=== PATIENT | female | born 1950 | race Caucasian/White ===

== ENCOUNTER 2020-08-30 14:31 | Inpatient (IN) | payer MEDICARE, OTHER ==
[~2020-08-30] VITALS: Ht 162.6 cm; Wt 64.9 kg
[~2020-08-30 14:31] MED LIST: ALBU18HF2 IH; ASPI-1169 PO; AZIT250T13 PO; ERGO500014 PO; FLUT1DIS3 INH; GENT5DRO23 EACHEYE; NEFA150T PO; PROP40TA7 PO
--- NOTE | 2020-08-30 14:35 | NUR ---
DR. ATKINSON AT BS FOR KRYSTLEAL
[2020-08-30] MEDS ORDERED: IV NS 0.9% 1,000 ML BAG IV ONE (15:00)
--- NOTE | 2020-08-30 15:10 | NUR ---
COVID SPECIMEN OBTAINED AND SENT TO LAB.
--- NOTE | 2020-08-30 15:12 | NUR ---
[id number], diaphoretic, altered, "possible heat stroke per ems, 88/40 BS 256, 500 NS infused on scene. PT AAOX4, VSS. RR EVEN & UNLABORED. JOON CP, SOB, DIZZINESS, N/V AT THIS TIME. PLACED ON FOREST OFFICER, SR. WILL CONT TO MONITOR.
[2020-08-30 15:33] LABS: HEMOGLOBIN 14.3 g/dL (11.5-14.8); RED BLOOD CELL COUNT(AUTO) 4.78 MIL/uL (4.0-5.2)
[2020-08-30 15:38] LABS: SERUM AMMONIA 24 umol/L (11-32)
[2020-08-30 15:40] LABS: BASOPHILS # (AUTO) 0.1 /CMM (0.0-0.2); BASOPHILS % (AUTO) 0.7 % (0.0-2.0); EOSINOPHILS % (AUTO) 0.2 % (0.0-6.0); HEMATOCRIT 44 % (33-45); LYMPHOCYTES # (AUTO) 1.4 /CMM (0.8-4.8); LYMPHOCYTES % (AUTO) 9.4 % (20.0-44.0); MEAN CORPUSCULAR HGB CONC 33 g/dl (31.0-36.0); MEAN CORPUSCULAR VOLUME 92 fL (82-100); MONOCYTES # (AUTO) 0.5 /CMM (0.1-1.30); MONOCYTES % (AUTO) 3.6 % (2.0-12.0); NEUTROPHILS # (AUTO) 12.4 /CMM (1.8-8.9); NEUTROPHILS % (AUTO) 86.1 % (43.0-81.0); PLATELET COUNT (AUTO) 317 /CMM (150-450); WHITE BLOOD COUNT (AUTO) 14.4 K/uL (4.3-11.0)
[2020-08-30 15:45] LABS: APPEARANCE,URINE TURBID (CLEAR); BILIRUBIN,URINE MODERATE (NEGATIVE); BLOOD, URINE LARGE Ery/uL (NEGATIVE); COLOR,URINE YELLOW (YELLOW); KETONES,URINE NEGATIVE (NEGATIVE); LEUKOCYTE ESTERASE ,URINE TRACE (NEGATIVE); NITRITE, URINE POSITIVE (NEGATIVE); PROTEIN,URINE 100 mg/dl (NEGATIVE); UGLUCOSE NEGATIVE (NEGATIVE)
[2020-08-30 15:46] LABS: ALANINE AMINOTRANSFERASE 9 U/L (12-78); ALBUMIN 3.1 g/dL (3.4-5.0); ALCOHOL, BLOOD < 3 mg/dL (0-0); ALKALINE PHOSPHATASE 120 U/L (46-116); ASPARTATE AMINOTRANSFERASE 16 U/L (15-37); BILIRUBIN,DIRECT 0.2 mg/dL (0.0-0.2); BILIRUBIN,TOTAL 0.5 mg/dL (0.2-1.0); CALCIUM, SERUM 9.6 mg/dL (8.5-10.1); CARBON DIOXIDE 23 mmol/L (21-32); CHLORIDE 101 mmol/L (98-107); CREATININE 1.7 mg/dL (0.6-1.3); GLUCOSE 269 mg/dL (74-106); SALICYLATE 8.6 mg/dL (2.8-20.0); SODIUM SERUM 144 mmol/L (136-145); TOTAL PROTEIN, SERUM 7.3 g/dL (6.4-8.2); UREA NITROGEN, BLOOD 12 mg/dL (7-18)
[2020-08-30 15:50] LABS: POTASSIUM 2.1 mmol/L (3.5-5.1); THYROID STIMULATING HORMONE 3.026 uIU/mL (0.358-3.74)
--- NOTE | 2020-08-30 15:52 | NUR ---
PATIENT REFUSED CT HEAD WO EXAM. ORDERING DOCTOR AND NURSE NOTIFIED.
[2020-08-30 15:58] LABS: BACTERIA,URINE 4+ /HPF (None Seen); RBC,URINE 21-50 /HPF (0-2)
[2020-08-30] MEDS ORDERED: POTASSIUM CHLORIDE 20 MEQ TAB.PRT.SR PO ONE ×2 (16:00→16:04)
--- NOTE | 2020-08-30 16:02 | NUR ---
LAB CALLED PT COVID-19 NEG. (-)
[2020-08-30] MEDS ORDERED: CLON2TAB11 PO (16:20)
--- NOTE | 2020-08-30 16:31 | NUR ---
PT SIGNED AMA. Written and verbal after care instructions given. Patient verbalizes understanding of instruction. IV removed. Catheter intact and site benign. Pressure and 4x4 applied to site. No bleeding noted.
--- NOTE | 2020-08-30 16:55 | NUR ---
MOVE SHEET SUBMITTED AND CALLED FOR TELE BED.
--- NOTE | 2020-08-30 16:59 | NUR ---
PT UNABLE TO AMBULATE, DR. ATKINSON AWARE & PT WILL BE ADMITTED TO HOSPITAL.
--- NOTE | 2020-08-30 18:24 | NUR ---
GOT BED 202
[2020-08-30] MEDS ORDERED: CEFTRIAXONE 1GM BAG (ER ONLY) 50 ML IV ONE (18:25)
[2020-08-30] MEDS ORDERED: CEFTRIAXONE 1GM BAG (ER ONLY) 1 GM/50 ML PIGGYBACK IV ONE (18:30)
--- NOTE | 2020-08-30 18:32 | NUR ---
report given to peter arauz patient awaiting transfer to floor.
--- NOTE | 2020-08-30 19:03 | NUR ---
UNABLE TO ACCOMPLISHED ADMISSION ASSESSMENT. BECAUSE PT WAS PREVIOUSLY DEPARTED DISCHARGED. PT IS AAOX3, V/S STABLE, KEPT RESTED AND COMFORTABLE.
[2020-08-30] MEDS ORDERED: ACETAMINOPHEN 325 MG TABLET PO PRN (19:30)
[2020-08-30] MEDS ORDERED: CEFTRIAXONE 1 G in IV D5W 50 ML IV SCH (19:30)
[2020-08-30] MEDS ORDERED: MAGNESIUM HYDROXIDE 30 ML UDC PO PRN (19:30)
[2020-08-30] MEDS ORDERED: ONDANSETRON HCL/PF 4 MG/2 ML VIAL IVP PRN (19:30)
[2020-08-30] MEDS ORDERED: ALBUTEROL HALF STRENGTH 1.25 MG/3 ML VIAL.NEB NEB PRN (19:30)
[2020-08-30] MEDS ORDERED: IPRATROPIUM NEB FS 0.5 MG/2.5 ML AMPUL.NEB NEB PRN (19:30)
[2020-08-30] MEDS ORDERED: clonazePAM 2 MG TABLET PO SCH (19:30)
[2020-08-30] MEDS ORDERED: Z GUARD REMEDY 2 OZ OINT TP PRN (19:30)
--- NOTE | 2020-08-30 19:35 | NUR ---
OCCUPATIONAL THERAPIST'S ASSISTANT NOTES PATIENT IN ARRIVED ON FLOOR AT 1905. PT IS IN BED, AWAKE, ALERT AND ORIENTED X 2-3. BREATHING EVEN AND UNLABORED ON ROOM AIR. SHOWS NO SIGNS OF ACUTE RESPIRATORY DISTRESS, NO ACUTE PAIN. TELE MONITOR SR WITH PVC. IV ON R HAND 18 ITS CLEAN DRY AND INTACT. SHOWS NO SIGNS OF INFILTRATION, NO REDNESS. BELONGINGS CHECKLIST COMPLETED, SKIN ASSESSMENT COMPLETED. ORIENTED TO STAFF AND ROOM. BED ALARM ON. SAFETY PRECAUTIONS IN PLACE. BED IN LOWEST POSITION, LOCKED, AND CALL LIGHT KEPT WITHIN REACH. WILL CONTINUE TO MONITOR.
[2020-08-30 20:00] VITALS: BP 173/66
[2020-08-30 20:16] VITALS: BP 173/66
[2020-08-30] MEDS: HYDROCODONE/APAP 5/325MG TABLET PO PRN (20:17)
--- NOTE | 2020-08-30 20:17 | NUR ---
VETERINARY PATHOLOGIST NOTES PATIENT SCREAMING FOR PAIN MEDICATION, STATING BURNING ON LEGS 06/06. GIVEN PRN NORCO AT 2017. VITAL SIGN WNL.
[2020-08-30] MEDS: IV NS 0.9% 1,000 ML IV PRN (20:27)
[2020-08-30] MEDS: NICOTINE PATCH (14MG) 14 MG PATCH.TD24 TD SCH (20:36)
[2020-08-30] MEDS ORDERED: POTASSIUM CL. PREMIX PERIPHER. 100 ML ONE (20:59)
[2020-08-30] MEDS ORDERED: HEPARIN SODIUM, PORCINE 5000 UNITS/1 ML VIAL SQ SCH (21:00)
[2020-08-30] MEDS: HEPARIN SODIUM, PORCINE 5000 UNITS/1 ML VIAL SQ SCH (21:19)
[2020-08-30] MEDS: POTASSIUM CL. PREMIX PERIPHER. 50 ML IV SCH ×2 (21:20→22:31)
[2020-08-30] MEDS ORDERED: IV NS 0.9% 500 ML IV ONE (21:30)
[2020-08-30] MEDS ORDERED: VANCOMYCIN 1 GM in IV D5W 250ml IV ONE (21:30)
[2020-08-30] MEDS ORDERED: VANCOMYCIN 1 GM VIAL ONE (21:42)
[2020-08-30] MEDS ORDERED: clonazePAM 1 MG TABLET ONE (21:45)
[2020-08-31] VITALS (10 sets, daily range): BP systolic 101–166; BP diastolic 65–98
--- NOTE | 2020-08-31 00:43 | NUR ---
E COMMERCE STRATEGIST NOTES PATIENT REFUSING DTV PUMP. PT STATES THAT HER LEGS ARE IN PAIN. WILL ATTEMPT LATER.
[2020-08-31] MEDS: HYDROCODONE/APAP 5/325MG TABLET PO PRN ×3 (01:08→17:38)
--- NOTE | 2020-08-31 06:31 | NUR ---
ANIMAL HEALTH TECHNICIAN NOTES PT IS IN BED, ASLEEP, ALERT AND ORIENTED X 2-3. BREATHING EVEN AND UNLABORED ON ROOM AIR. SHOWS NO SIGNS OF ACUTE RESPIRATORY DISTRESS, NO ACUTE PAIN. TELE MONITOR SR WITH PVC. IV ON R HAND 20 ITS CLEAN DRY AND INTACT. RUNNING NS AT 100ML/HR SHOWS NO SIGNS OF INFILTRATION, NO REDNESS. ALL NEEDS ATTENDED TO. ALL DUE MEDICATIONS GIVEN. SAFETY PRECAUTIONS IN PLACE. BED ALARM ON, LOCKED, LOWEST POSITION, AND CALL LIGHT KEPT WITHIN REACH. WILL CONTINUE TO MONITOR.
[2020-08-31 06:53] LABS: BASOPHILS % (AUTO) 0.4 % (0.0-2.0); EOSINOPHILS % (AUTO) 0.4 % (0.0-6.0); HEMATOCRIT 38 % (33-45); HEMOGLOBIN 12.5 g/dL (11.5-14.8); LYMPHOCYTES # (AUTO) 2.2 /CMM (0.8-4.8); LYMPHOCYTES % (AUTO) 22.7 % (20.0-44.0); MEAN CORPUSCULAR HGB CONC 33 g/dl (31.0-36.0); MEAN CORPUSCULAR VOLUME 92 fL (82-100); MONOCYTES # (AUTO) 0.8 /CMM (0.1-1.30); NEUTROPHILS # (AUTO) 6.7 /CMM (1.8-8.9); NEUTROPHILS % (AUTO) 68.5 % (43.0-81.0); PLATELET COUNT (AUTO) 228 /CMM (150-450); RED BLOOD CELL COUNT(AUTO) 4.11 MIL/uL (4.0-5.2); WHITE BLOOD COUNT (AUTO) 9.7 K/uL (4.3-11.0)
[2020-08-31 07:11] LABS: CALCIUM, SERUM 8.3 mg/dL (8.5-10.1); CREATININE 0.8 mg/dL (0.6-1.3); MAGNESIUM 2.1 mg/dL (1.8-2.4); PHOSPHORUS 1.8 mg/dL (2.5-4.9)
--- NOTE | 2020-08-31 07:30 | NUR ---
RN NOTE THE PATIENT IS RECEIVED IN BED. THE PATIENT IS ALERT AND ORIENTED X3 WITH EPISODES OF FORGETFULNESS. THE PATIENT ABLE TO MAKE NEEDS KNOWN VERBALLY. DENIES PAIN. THE PATIENT IS IN ROOM AIR AND DENIES SOB. RESPIRATION REGULAR AND UNLABORED. DENIES SOB. RIGHT HAND G 20 PATENT AND NS INFUSING AT 100ML/HR. NO S/S INFILTRATION NOTED. BED LOW AND LOCKED. SIDE RAILS UP X3. CALL LIGHT WITHIN REACH. WILL CONTINUE TO MONITOR.
[2020-08-31 07:34] LABS: POTASSIUM 1.9 mmol/L (3.5-5.1)
--- NOTE | 2020-08-31 08:07 | NUR ---
[place] NOTE WAITING FOR BAG BAILER KATHY`S RESPOND TO REPORT POTASSIUM LEVEL OF 1.9 AND PHOSPHORUS LEVEL OF 1.8. Addendum: 08/31/20 at 0859 by WALI DELCID RN [place] NOTE ORDER OS POTASSIUM OF PHOSPHATE IS OBTAINED, NOTED AND CARRIED OUT.
[2020-08-31] MEDS: NICOTINE PATCH (14MG) 14 MG PATCH.TD24 TD SCH (08:13)
[2020-08-31] MEDS: clonazePAM 1 MG TABLET PO SCH ×2 (08:13→16:50)
[2020-08-31] MEDS: HEPARIN SODIUM, PORCINE 5000 UNITS/1 ML VIAL SQ SCH ×2 (08:14→21:52)
--- NOTE | 2020-08-31 08:14 | NUR ---
RN NOTE THE PATIENT COMPLAINS OF GENERALIZED BODY PAIN 05/07. NORCO 5/325 1 TAB PO GIVEN. WILL CONTINUE TO MONITOR.
--- NOTE | 2020-08-31 09:13 | NUR ---
RN NOTE THE PATIENT VERBALIZED NORCO 5/325 BEING EFFECTIVE AND RATED HER PAIN 0/10.
[2020-08-31] MEDS: POTASSIUM CHLORIDE 20 MEQ TAB.PRT.SR PO SCH ×5 (09:34→14:20)
[2020-08-31] MEDS: POTASSIUM PHOSPHATE MM 7.5 MMOL in IV NS 0.9% 100 ML IV SCH ×2 (10:13→13:19)
[2020-08-31] MEDS: IV NS 0.9% 1,000 ML IV PRN (10:29)
[2020-08-31 15:02] LABS: CALCIUM, SERUM 8.3 mg/dL (8.5-10.1); CREATININE 0.9 mg/dL (0.6-1.3)
[2020-08-31 15:06] LABS: POTASSIUM 2.4 mmol/L (3.5-5.1)
--- NOTE | 2020-08-31 15:19 | NUR ---
RN NOTE SOLAR WATER HEATER INSTALLER KATHY IS MADE AWARE OF POTASSIUM LEVEL OF 2.4. PER SOLAR WATER HEATER INSTALLER SHE WILL PLACE AN ORDER.
[2020-08-31] MEDS ORDERED: risperiDONE 1 MG TABLET PO PRN (15:30)
[2020-08-31] MEDS: POTASSIUM CL. PREMIX PERIPHER. 50 ML IV SCH ×4 (15:41→21:35)
--- NOTE | 2020-08-31 17:20 | NUR ---
RN NOTE THE PATIENT`S BLOOD PRESSURE IS 166/98 AND PULSE IS 72. ELISABETH CHAVEZ IS MADE AWARE AND RECEIVED AN ORDER OF APRESOLINE 10 MG IV PUSH X1, HOWEVER. THE MEDICATION IN IV FORM IS NOT AVAILABLE PER PHARMACY. WILL INFORM MD TO CHANGE THE ROUTE IF POSSIBLE.
--- NOTE | 2020-08-31 17:27 | NUR ---
RN NOTE THE PATIENT`S BLOOD PRESSURE IS 166/98 AND PULSE IS 72. ELISABETH CHAVEZ IS MADE AWARE AND RECEIVED AN ORDER OF APRESOLINE 10 MG PO X1. NOTED AND CARRIED OUT. WILL ADMINISTER THE MEDICATION AND MONITOR FOR EFFECTIVENESS.
[2020-08-31] MEDS ORDERED: hydrALAZINE HCL IV 20 MG VIAL IV PRN (17:30)
[2020-08-31] MEDS ORDERED: hydrALAZINE HCL 10 MG TABLET PO ONE (17:30)
[2020-08-31] MEDS: CEFTRIAXONE 1 G in IV D5W 50 ML IV SCH (18:36)
--- NOTE | 2020-08-31 19:00 | NUR ---
RN NOTE THE PATIENT IS ALERT AND ORIENTED X3. DENIES PAIN. RECEIVING OXYGEN AT 2L/MIN VIA NASAL CANNULA AND SATURATION IS AT 95%. DENIES SOB. RESPIRATION REGULAR AND UNLABORED. THE PATIENT IN NO APPARENT DISTRESS. EXTERNAL TELE BOX READING IS SR 85. RIGHT HAND G 20 PATENT AND NS INFUSING AT 100ML/HR AND NO S/S INFILTRATION NOTED. BED LOW AND LOCKED. SIDE RAILS UP X3. CALL LIGHT WITHIN REACH. WILL ENDORSE PIT CRANE OPERATOR. Addendum: 08/31/20 at 2005 by WALI DELCID RN RN NOTE ENDORSED 3 BAGS OF POTASSIUM TO THE PIT CRANE OPERATOR RN TO ADMINISTER.
--- NOTE | 2020-08-31 19:35 | NUR ---
FIRER LOW PRESSURE NOTES PT IS IN BED, AWAKE, ALERT AND ORIENTED X 2-3. BREATHING EVEN AND UNLABORED ON ROOM AIR. SHOWS NO SIGNS OF ACUTE RESPIRATORY DISTRESS, NO ACUTE PAIN. TELE MONITOR SR WITH PVC. IV ON R HAND 20 ITS CLEAN DRY AND INTACT. RUNNING NS AT 100ML/HR. SHOWS NO SIGNS OF INFILTRATION, NO REDNESS. SAFETY PRECAUTIONS IN PLACE. BED IN LOWEST POSITION, LOCKED, AND CALL LIGHT KEPT WITHIN REACH. WILL CONTINUE TO MONITOR.
[2020-08-31] MEDS: ATORVASTATIN 10 MG TABLET PO SCH (21:51)
[2020-08-31] MEDS: VANCOMYCIN 1 GM in IV D5W 250 ML IV SCH (22:32)
[2020-09-01] VITALS (10 sets, daily range): BP systolic 135–167; BP diastolic 65–101
[2020-09-01] MEDS: POTASSIUM CL. PREMIX PERIPHER. 50 ML IV SCH ×2 (00:43→01:59)
[2020-09-01] MEDS: CLONIDINE HCL 0.1 MG TABLET PO PRN ×2 (05:27→21:25)
--- NOTE | 2020-09-01 05:30 | NUR ---
CULINARY INSTRUCTOR NOTES PT BP 169/74. RECEIVED ORDER FOR CLONIDINE .1MG PRN >160 Q8HR. GIVEN AT 0527. WILL CONTINUE TO MONITOR.
--- NOTE | 2020-09-01 06:30 | NUR ---
MEMBERSHIP COUNSELOR NOTES PT IS IN BED, ASLEEP, ALERT AND ORIENTED X 2-3. BREATHING EVEN AND UNLABORED ON ROOM AIR. SHOWS NO SIGNS OF ACUTE RESPIRATORY DISTRESS, NO ACUTE PAIN. TELE MONITOR SR WITH PVC AND TRIGEMINY. BP 1HR AFTER PRN CLONIDINE 135/65. IV ON R HAND 20 ITS CLEAN DRY AND INTACT. RUNNING NS AT 100ML/HR. SHOWS NO SIGNS OF INFILTRATION, NO REDNESS.ALL NEEDS ATTENDED TO. ALL DUE MEDICATIONS GIVEN. SAFETY PRECAUTIONS IN PLACE. BED ALARM ON, LOCKED, LOWEST POSITION, AND CALL LIGHT KEPT WITHIN REACH. WILL ENDORSE TO ONCOMING NURSE.
[2020-09-01] MEDS ORDERED: ALBUTEROL SULFATE INH 18 GM HFA.AER.AD IH PRN (07:00)
[2020-09-01] MEDS ORDERED: IPRATROPIUM BROMIDE 14 GM INHALER (or 12.9 GM) IH PRN (07:00)
--- NOTE | 2020-09-01 08:00 | NUR ---
Patient noted with infiltrated IV line . IV removed , arm elevated on pillow. No pain reported
[2020-09-01] MEDS: NICOTINE PATCH (14MG) 14 MG PATCH.TD24 TD SCH (08:05)
[2020-09-01] MEDS: clonazePAM 1 MG TABLET PO SCH ×2 (08:05→17:07)
[2020-09-01] MEDS: HEPARIN SODIUM, PORCINE 5000 UNITS/1 ML VIAL SQ SCH ×3 (08:06→21:23)
[2020-09-01 08:17] LABS: BASOPHILS % (AUTO) 0.6 % (0.0-2.0); EOSINOPHILS % (AUTO) 0.7 % (0.0-6.0); HEMATOCRIT 38 % (33-45); HEMOGLOBIN 12.7 g/dL (11.5-14.8); LYMPHOCYTES % (AUTO) 25.5 % (20.0-44.0); MEAN CORPUSCULAR HGB CONC 33 g/dl (31.0-36.0); MEAN CORPUSCULAR VOLUME 91 fL (82-100); MONOCYTES # (AUTO) 0.4 /CMM (0.1-1.30); MONOCYTES % (AUTO) 5.6 % (2.0-12.0); NEUTROPHILS # (AUTO) 5.4 /CMM (1.8-8.9); NEUTROPHILS % (AUTO) 67.6 % (43.0-81.0); PLATELET COUNT (AUTO) 219 /CMM (150-450); RED BLOOD CELL COUNT(AUTO) 4.22 MIL/uL (4.0-5.2)
[2020-09-01 08:32] LABS: CALCIUM, SERUM 8.4 mg/dL (8.5-10.1); CREATININE 0.7 mg/dL (0.6-1.3); MAGNESIUM 1.9 mg/dL (1.8-2.4); PHOSPHORUS 3.1 mg/dL (2.5-4.9)
[2020-09-01 09:42] LABS: POTASSIUM 2.4 mmol/L (3.5-5.1)
--- NOTE | 2020-09-01 10:10 | NUR ---
Several attempts to insert a new IV line . Patient hard stick. Per Kin holbrook to order a midline
[2020-09-01] MEDS: POTASSIUM CHLORIDE 20 MEQ TAB.PRT.SR PO SCH ×6 (11:28→16:17)
[2020-09-01] MEDS ORDERED: POTASSIUM CHLORIDE 20 MEQ TAB.PRT.SR PO ONE (11:30)
--- NOTE | 2020-09-01 13:05 | NUR ---
Midline to the ALE inserted and flushing well.
[2020-09-01] MEDS ORDERED: IPRATROPIUM NEB FS 0.5 MG/2.5 ML AMPUL.NEB NEB PRN (15:00)
[2020-09-01] MEDS ORDERED: ALBUTEROL FS 2.5 MG/0.5 ML VIAL.NEB NEB PRN (15:00)
[2020-09-01] MEDS: IV NS 0.9% 1,000 ML IV PRN (15:27)
--- NOTE | 2020-09-01 16:10 | NUR ---
Bedside report given to Anup CARRILLO , pt transferred to 3rd floor . Negative for COVID.
--- NOTE | 2020-09-01 16:35 | NUR ---
tele acid purification equipment operator: notes received pt from tele 2 via bed. pt awake, a/ox3. p.t. tx in progress. noted xavi arms with discoloration, left index finger and left elbow with intact blister with discolorations. photos taken. oriented to room and surroundings. instructed to call for assistance.
[2020-09-01 16:40] LABS: CALCIUM, SERUM 8.4 mg/dL (8.5-10.1); CARBON DIOXIDE 31 mmol/L (21-32); CHLORIDE 103 mmol/L (98-107); CREATININE 0.7 mg/dL (0.6-1.3); GLUCOSE 111 mg/dL (74-106); SODIUM SERUM 141 mmol/L (136-145); UREA NITROGEN, BLOOD 5 mg/dL (7-18)
--- NOTE | 2020-09-01 17:30 | NUR ---
m/s sql manager: notes having dinner at this time, hob elevated to 90 degree. instructed to call for assistance.
[2020-09-01] MEDS: CEFTRIAXONE 1 G in IV D5W 50 ML IV SCH (17:51)
--- NOTE | 2020-09-01 19:00 | NUR ---
MICROARRAY OPERATIONS VICE PRESIDENT OPENING NOTES RECEIVED PATIENT IN BED SLEEPING EASILY AROUSABLE RESPIRATIONS EVEN AND UNLABORED WITH EQUAL RISE AND FALL OF CHEST, DENIES ANY PAIN OR DISCOMFORT AT THIS TIME, LEFT UPPER ARM MIDLINE INTACT AND PATENT, NO REDNESS, NO INFILTRATION PRESENT, IVF RUNNING ORDERED, SAFETY PRECAUTIONS RENDERED LOW BED AND LOCKED, ALL NEEDS ATTENDED AT THIS TIME, ORIENTED TO STAFF AND CALL LIGHT AND KEPT WITHIN REACH, WILL CONTINUE TO MONITOR AND ATTEND TO NEEDS REMAINS COMFORTABLE. ON TEL MONITOR SR 72.
--- NOTE | 2020-09-01 19:00 | NUR ---
m/s catechist: notes report given to el (regla) for continuity of care.
[2020-09-01] MEDS: VANCOMYCIN 1 GM in IV D5W 250 ML IV SCH (21:23)
[2020-09-01] MEDS: ATORVASTATIN 10 MG TABLET PO SCH (21:23)
--- NOTE | 2020-09-01 21:25 | NUR ---
RN MS NOTES ASSESSED BP NOTED 175/93 PRN CATAPRES GIVEN ORDERED WILL MONITOR BP FOR EFFECTIVENESS.
--- NOTE | 2020-09-01 21:45 | NUR ---
graduate internship notes despite education provided regarding heparin , patient changed her mind and states " i dont want to take it". heparin not given.
[2020-09-02] VITALS: BP 143/94
[2020-09-02] MEDS: IV NS 0.9% 1,000 ML IV PRN (03:27)
[2020-09-02 04:00] VITALS: BP 147/87
[2020-09-02 04:20] VITALS: BP 147/87
--- NOTE | 2020-09-02 06:16 | NUR ---
ORE BRIDGE OPERATOR CLOSING NOTES PATIENT IN BED SLEEPING EASILY AROUSABLE RESPIRATIONS EVEN AND UNLABORED WITH EQUAL RISE AND FALL OF CHEST, DENIES ANY PAIN OR DISCOMFORT AT THIS TIME, LEFT UPPER ARM MIDLINE INTACT AND PATENT, NO REDNESS, NO INFILTRATION PRESENT, IVF RUNNING ORDERED, SAFETY PRECAUTIONS RENDERED LOW BED AND LOCKED, ALL NEEDS ATTENDED AT THIS TIME, CALL LIGHT KEPT WITHIN REACH, WILL CONTINUE TO MONITOR AND ATTEND TO NEEDS REMAINS COMFORTABLE. ON TELE MONITOR SR 69.
[2020-09-02 06:47] LABS: BASOPHILS % (AUTO) 0.6 % (0.0-2.0); EOSINOPHILS % (AUTO) 2.1 % (0.0-6.0); HEMATOCRIT 39 % (33-45); HEMOGLOBIN 12.9 g/dL (11.5-14.8); LYMPHOCYTES # (AUTO) 2.2 /CMM (0.8-4.8); LYMPHOCYTES % (AUTO) 33.1 % (20.0-44.0); MEAN CORPUSCULAR HGB CONC 33 g/dl (31.0-36.0); MEAN CORPUSCULAR VOLUME 92 fL (82-100); MONOCYTES # (AUTO) 0.5 /CMM (0.1-1.30); MONOCYTES % (AUTO) 7.2 % (2.0-12.0); NEUTROPHILS # (AUTO) 3.8 /CMM (1.8-8.9); PLATELET COUNT (AUTO) 208 /CMM (150-450); RED BLOOD CELL COUNT(AUTO) 4.27 MIL/uL (4.0-5.2); WHITE BLOOD COUNT (AUTO) 6.7 K/uL (4.3-11.0)
[2020-09-02 06:51] LABS: ALBUMIN 2.2 g/dL (3.4-5.0); BILIRUBIN,TOTAL 0.2 mg/dL (0.2-1.0); CALCIUM, SERUM 8.3 mg/dL (8.5-10.1); CREATININE 0.7 mg/dL (0.6-1.3); PHOSPHORUS 2.8 mg/dL (2.5-4.9); POTASSIUM 3.5 mmol/L (3.5-5.1); TOTAL PROTEIN, SERUM 5.8 g/dL (6.4-8.2)
--- NOTE | 2020-09-02 07:30 | NUR ---
RN Opening Note Received patient in bed, sleeping, able to responds all stimuli, does no appears pain or distress. Respiratory even and unlabored on room air, no distress observed, HR 59-60 with sinus from monitor. Skin is warm to touch, keep clean/dry, intact midline on left upper arm running NS at 100ml/hr. Kept locked bed with lowest position, bed alarm on for safety, and elevated HOB for ensure airway. Call light within reach, will continue to monitor.
[2020-09-02] MEDS: NICOTINE PATCH (14MG) 14 MG PATCH.TD24 TD SCH (08:39)
[2020-09-02] MEDS: clonazePAM 1 MG TABLET PO SCH ×2 (08:39→17:48)
[2020-09-02] MEDS: CLONIDINE HCL 0.1 MG TABLET PO PRN (08:39)
[2020-09-02] MEDS: HEPARIN SODIUM, PORCINE 5000 UNITS/1 ML VIAL SQ SCH ×2 (08:47→21:00)
[2020-09-02 09:00] VITALS: BP_SYST 144; BP_SYST 157; BP_DIAS 100; BP_DIAS 98
--- NOTE | 2020-09-02 09:50 | NUR ---
WOUND CARE CONSULT: PT PRESENTS WITH AREAS OF DRY ABRASIONS, SKIN DISCOLORATION, LARGE INTACT BLISTER TO LEFT LEG AND THIGH AND RASH TO BREASTFOLDS AND ABDOMINAL/GROIN FOLDS, PRESENT ON ADMISSION. RECOMMEND SURGICAL CONSULT FOR BLISTERED AREA. DR TAMARA PADILLA NOTIFIED OF CONSULT REQUEST. RECOMMENDATIONS MADE FOR WOUND CARE AND SKIN PROTECTION. DISCUSSED WITH NURSING STAFF. PT IS INCONTINENT. WILL SEE PRN. IN AGREEMENT WITH PLAN OF CARE.
[2020-09-02] MEDS: GUAIFENESIN LA 600 MG TABLET.SA PO SCH ×2 (10:15→21:27)
[2020-09-02] MEDS: VALSARTAN 80 MG TABLET PO SCH (10:16)
[2020-09-02] MEDS ORDERED: CLOTRIMAZOLE 1% 15 GM TUBE TP SCH (17:00)
[2020-09-02] MEDS: CEFTRIAXONE 1 G in IV D5W 50 ML IV SCH (17:53)
--- NOTE | 2020-09-02 18:35 | NUR ---
RN Closing Note Patient in bed resting comfortably, does no c/o pain or discomfort, skin is warm to touch seen by wound care nurse today and placed order Lotrimin for skin rash and consult for blister wound on left leg. Patient noted CKMB 2.8 CH MD made aware. Respiratory even and unlabored on room air, O2sat 90-94%. Kept locked bed with lowest position and bed alarm is on all times, call light within reach, will endorse car shifter.
--- NOTE | 2020-09-02 19:30 | NUR ---
MS RN NOTE: PATIENT RESTING IN BED, NO ACUTE DISTRESS NOTED. BREATHING EVEN AND UNLABORED, NO SOB NOTED. MIDLINE TO ALE IN PLACE. BED LOCKED AND IN LOWEST POSITION, CALL LIGHT IN REACH. WILL CONTINUE TO MONITOR.
[2020-09-02 20:00] VITALS: BP 148/98
[2020-09-02] MEDS: ATORVASTATIN 10 MG TABLET PO SCH (21:27)
--- NOTE | 2020-09-02 22:15 | NUR ---
MS RN NOTE: PATIENT DUE TO HAVE VANCO TROUGH DRAWN, SPOKE TO LAB, SOMEONE WILL BE UP TO DRAW LAB. VANCOMYCIN NOT ADMINISTER YET UNTIL VANCO TROUGH RESULTS ARE IN. WILL CONTINUE TO MONITOR.
--- NOTE | 2020-09-02 23:30 | NUR ---
MS RN NOTE: PATIENT VANCO TROUGH LEVEL RESULTED AT 5, VANCO GIVEN PER MD ORDER. WILL CONTINUE TO MONITOR.
[2020-09-02] MEDS: VANCOMYCIN 1 GM in IV D5W 250 ML IV SCH (23:43)
--- NOTE | 2020-09-03 06:00 | NUR ---
MS RN NOTE: PATIENT RESTING IN BED, NO ACUTE DISTRESS NOTED. BREATHING EVEN AND UNLABORED, NO SOB NOTED. MIDLINE TO ALE IN PLACE. BED LOCKED AND IN LOWEST POSITION, CALL LIGHT IN REACH. WILL ENDORSE TO DAY NURSE TO CONTINUE WITH PLAN OF CARE.
[2020-09-03 06:24] LABS: BASOPHILS % (AUTO) 0.7 % (0.0-2.0); EOSINOPHILS % (AUTO) 2.9 % (0.0-6.0); HEMATOCRIT 39 % (33-45); HEMOGLOBIN 12.8 g/dL (11.5-14.8); LYMPHOCYTES # (AUTO) 2.1 /CMM (0.8-4.8); LYMPHOCYTES % (AUTO) 30.8 % (20.0-44.0); MEAN CORPUSCULAR HGB CONC 33 g/dl (31.0-36.0); MEAN CORPUSCULAR VOLUME 91 fL (82-100); MONOCYTES # (AUTO) 0.5 /CMM (0.1-1.30); MONOCYTES % (AUTO) 7.5 % (2.0-12.0); NEUTROPHILS % (AUTO) 58.1 % (43.0-81.0); PLATELET COUNT (AUTO) 178 /CMM (150-450); RED BLOOD CELL COUNT(AUTO) 4.23 MIL/uL (4.0-5.2); WHITE BLOOD COUNT (AUTO) 6.8 K/uL (4.3-11.0)
--- NOTE | 2020-09-03 07:30 | NUR ---
ms rn received on bed, awake,alert,oriented x3,not in any form of distress, respirations even and unlabored,no sob noted. lungs are claer,abdomen soft, positive bowel sounds,denies pain at this time, all needs attended.
[2020-09-03 07:46] LABS: CALCIUM, SERUM 8.6 mg/dL (8.5-10.1); CREATININE 0.7 mg/dL (0.6-1.3); MAGNESIUM 1.8 mg/dL (1.8-2.4); POTASSIUM 3.3 mmol/L (3.5-5.1)
[2020-09-03 08:00] VITALS: BP 141/85
[2020-09-03 08:46] VITALS: BP 141/85
[2020-09-03] MEDS: VALSARTAN 80 MG TABLET PO SCH (08:46)
[2020-09-03] MEDS: clonazePAM 1 MG TABLET PO SCH (08:46)
[2020-09-03] MEDS: NICOTINE PATCH (14MG) 14 MG PATCH.TD24 TD SCH (08:47)
[2020-09-03] MEDS: GUAIFENESIN LA 600 MG TABLET.SA PO SCH (08:47)
[2020-09-03] MEDS: HEPARIN SODIUM, PORCINE 5000 UNITS/1 ML VIAL SQ SCH (08:48)
[2020-09-03] MEDS: POTASSIUM CHLORIDE 20 MEQ TAB.PRT.SR PO SCH ×3 (09:07→12:02)
--- NOTE | 2020-09-03 09:20 | NUR ---
ms arauz breakfast served due meds given,tolerated well.
[2020-09-03 09:27] LABS: IRON, SERUM 48 ug/dl (50-175); TOTAL IRON BINDING CAPACITY 225 ug/dl (250-450)
[2020-09-03 09:41] LABS: FERRITIN 139 ng/mL (8-388)
[2020-09-03] MEDS ORDERED: VANCOMYCIN HCL 0.75 GM in IV D5W 250 ML IV SCH (10:00)
--- NOTE | 2020-09-03 11:00 | NUR ---
ms regla was seen by dalila booth/ orders made and carried out.
[2020-09-03] MEDS ORDERED: VALS80TA2 PO (11:59)
[2020-09-03] MEDS ORDERED: HEPA50008 SQ (11:59)
[2020-09-03] MEDS ORDERED: GUAI600T53 PO (11:59)
[2020-09-03] MEDS ORDERED: NICO-676 TD (11:59)
[2020-09-03] MEDS ORDERED: ATOR10TA PO (11:59)
[2020-09-03] MEDS ORDERED: CEPH-570 PO (12:00)
--- NOTE | 2020-09-03 15:45 | NUR ---
ms rn patient was transferred to snf, report given to Carlene arauz,all needs attended.
== END 2020-09-03 16:00 | DRG 871 ==
LOC: ER 14:32 → TELE2 18:30 → TELE 09-01 16:44 → MED 09-02 10:06
PROVIDERS: ADMIT Nurse Practitioner Acute Care; ATTEND Nurse Practitioner Acute Care
PROC: 05HY33Z Insertion of Infusion Device into Upper Vein, Percutaneous Approach (ICD-10-PCS; principal; 2020-09-01)
PROC: 05HY33Z Insertion of Infusion Device into Upper Vein, Percutaneous Approach (ICD-10-PCS; 2020-09-01)
DX: A41.9 Sepsis, unspecified organism (principal); G93.41 Metabolic encephalopathy; N17.0 Acute kidney failure with tubular necrosis; E44.1 Mild protein-calorie malnutrition; M62.82 Rhabdomyolysis; N39.0 Urinary tract infection, site not specified; E87.2 Acidosis; D68.59 Other primary thrombophilia; E86.0 Dehydration; I10 Essential (primary) hypertension; Z90.49 Acquired absence of other specified parts of digestive tract; Z88.8 Allergy status to other drugs, medicaments and biological substances; Z79.51 Long term (current) use of inhaled steroids; Z79.899 Other long term (current) drug therapy; E87.6 Hypokalemia; J44.9 Chronic obstructive pulmonary disease, unspecified; Z72.0 Tobacco use; F41.9 Anxiety disorder, unspecified; G47.00 Insomnia, unspecified; F41.0 Panic disorder [episodic paroxysmal anxiety]; K21.9 Gastro-esophageal reflux disease without esophagitis; Z79.82 Long term (current) use of aspirin; E86.9 Volume depletion, unspecified; D64.9 Anemia, unspecified; S80.822A Blister (nonthermal), left lower leg, initial encounter; X58.XXXA Exposure to other specified factors, initial encounter; Y92.9 Unspecified place or not applicable; Z74.09 Other reduced mobility; S81.802A Unspecified open wound, left lower leg, initial encounter
CPT/HCPCS: 36415; 70450-TC; 71045-TC; 80048-TC; 80053-TC; 80061-TC; 80076-TC; 80202-TC; 80305; 81000-TC; 82140-TC; 82550-TC; 82728-TC; 83540-TC; 83605-TC; 83615-TC; 83735-TC; 84100-TC; 84439-TC; 84443-TC; 84484-TC; 85025-TC; 85730-TC; 86140-TC; 87081-TC; 87086-TC; 97110-TC; 97116-TC; 97530-TC; C9803-CS; G0378; G0480; J0696; J1644; J3370; J3480; J3490; J7030; J7060; U0003-CS

== ENCOUNTER 2023-01-18 16:10 | Emergency (ER) | payer MEDICARE, OTHER ==
[~2023-01-18] VITALS: Ht 165.1 cm; Wt 74.8 kg
[~2023-01-18 16:10] MED LIST changes: +ACET-868 PO; -ALBU18HF2 IH; -ASPI-1169 PO; +ATOR10TA PO; -AZIT250T13 PO; +BISA10SU11 RC; +CLON2TAB11 PO; +CRAN425C6 PO; +DOCU-141 PO; -ERGO500014 PO; -FLUT1DIS3 INH; -GENT5DRO23 EACHEYE; +MAGN400O6 PO; +MULT-447 PO; +NA P133E RC; -NEFA150T PO; +NICO-676 TD; -PROP40TA7 PO; +RISP0.2515 PO; +TYL2T PO; +VALS160T29 PO
[2023-01-18] MEDS ORDERED: HYDROCODONE/APAP 5/325MG TABLET PO ONE (17:00)
[2023-01-18] MEDS ORDERED: TETRAcaine 5 ML BOTTLE EACHEYE ONE (17:00)
[2023-01-18] MEDS ORDERED: FLUORESCEIN SODIUM OPHTH 1 EA STRIP ONE (17:00)
[2023-01-18] MEDS ORDERED: FLUORESCEIN SODIUM OPHTH 1 EA STRIP OP ONE (17:00)
[2023-01-18] MEDS ORDERED: HYDROCODONE/APAP 5/325MG TABLET ONE (17:01)
[2023-01-18] MEDS ORDERED: CEFTRIAXONE 1GM BAG (ER ONLY) 1 GM/50 ML PIGGYBACK IV ONE (18:00)
[2023-01-18] MEDS ORDERED: CEFTRIAXONE 1GM BAG (ER ONLY) 50 ML IV ONE (19:24)
[2023-01-18 22:01] VITALS: BP 146/74
== END 2023-01-18 22:03 | disposition left against medical advice (07) ==
LOC: ER 16:12
DX: S02.32XA Fracture of orbital floor, left side, initial encounter for closed fracture (principal); S05.02XA Injury of conjunctiva and corneal abrasion without foreign body, left eye, initial encounter; H11.32 Conjunctival hemorrhage, left eye; R51.9 Headache, unspecified; I10 Essential (primary) hypertension; F17.200 Nicotine dependence, unspecified, uncomplicated; Z60.2 Problems related to living alone; Z79.899 Other long term (current) drug therapy; Z90.89 Acquired absence of other organs; Z88.8 Allergy status to other drugs, medicaments and biological substances; Y04.2XXA Assault by strike against or bumped into by another person, initial encounter; Y93.89 Activity, other specified; Y92.89 Other specified places as the place of occurrence of the external cause; Y99.8 Other external cause status
CPT/HCPCS: 70450-TC; 70486-TC; J0696

== ENCOUNTER 2023-10-19 17:14 | Emergency (ER) | payer MEDICARE, OTHER ==
[~2023-10-19] VITALS: Ht 165.1 cm; Wt 74.8 kg
[2023-10-19] VITALS (7 sets, daily range): BP systolic 121; BP diastolic 65; TEMP 99.1; O2SAT 93–98
[2023-10-19] MEDS ORDERED: IPRATROPIUM NEB FS 0.5 MG/2.5 ML AMPUL.NEB NEB ONE (17:30)
[2023-10-19] MEDS ORDERED: ALBUTEROL FS 2.5 MG/3 ML VIAL.NEB NEB ONE ×2 (17:30→19:00)
[2023-10-19] MEDS ORDERED: predniSONE 20 MG TABLET PO ONE (17:30)
[2023-10-19] MEDS ORDERED: predniSONE 20 MG TABLET ONE (17:40)
[2023-10-19 17:50] LABS: BASOPHILS % (AUTO) 0.4 % (0.0-2.0); EOSINOPHILS # (AUTO) 0.1 K/uL (0.0-0.7); EOSINOPHILS % (AUTO) 1.6 % (0.0-6.0); HEMATOCRIT 41 % (33-45); HEMOGLOBIN 13.5 g/dL (11.5-14.8); LYMPHOCYTES # (AUTO) 2.6 K/uL (0.8-4.8); MEAN CORPUSCULAR HEMOGLOBIN 31 PG (26.0-33.0); MEAN CORPUSCULAR HGB CONC 33 g/dl (31.0-36.0); MEAN CORPUSCULAR VOLUME 95 fL (82-100); MONOCYTES # (AUTO) 0.6 K/uL (0.1-1.30); MONOCYTES % (AUTO) 6.9 % (2.0-12.0); NEUTROPHILS # (AUTO) 4.8 K/uL (1.8-8.9); NEUTROPHILS % (AUTO) 59.1 % (43.0-81.0); PLATELET COUNT (AUTO) 238 K/uL (150-450); RED BLOOD CELL COUNT(AUTO) 4.35 MIL/uL (4.0-5.2); RED CELL DISTRIBUTION WIDTH 13.6 % (11.5-15.0); WHITE BLOOD COUNT (AUTO) 8.1 K/uL (4.3-11.0)
[2023-10-19] MEDS ORDERED: CHOL500062 PO (17:51)
[2023-10-19] MEDS ORDERED: ALBU18HF2 IH (17:51)
[2023-10-19] MEDS ORDERED: FOLI1TAB26 PO (17:51)
[2023-10-19] MEDS ORDERED: METO25TA6 PO (17:51)
[2023-10-19] MEDS ORDERED: ASPI-1420 PO (17:51)
[2023-10-19] MEDS ORDERED: ATOR20TA PO (17:51)
[2023-10-19] MEDS ORDERED: NICO-761 TD (17:51)
[2023-10-19] MEDS ORDERED: POLY17PO4 PO (17:51)
[2023-10-19] MEDS ORDERED: CLON1TAB12 PO (17:51)
[2023-10-19] MEDS ORDERED: RISP1TAB97 PO (17:51)
[2023-10-19] MEDS ORDERED: FLUT1BLS IH (17:51)
[2023-10-19] MEDS ORDERED: AMLO1TAB12 PO (17:51)
[2023-10-19] MEDS ORDERED: SENN-261 PO (17:51)
[2023-10-19] MEDS ORDERED: ALBUTEROL FS 2.5 MG/3 ML VIAL.NEB ONE ×2 (17:54→19:19)
[2023-10-19] MEDS ORDERED: IPRATROPIUM NEB FS 0.5 MG/2.5 ML AMPUL.NEB ONE (17:54)
[2023-10-19 18:11] LABS: CALCIUM, SERUM 8.7 mg/dL (8.5-10.1); CREATININE 0.9 mg/dL (0.6-1.3)
[2023-10-19] MEDS ORDERED: DOXYCYCLINE 100 MG in IV D5W 100 ML IV ONE (18:30)
[2023-10-19] MEDS ORDERED: PRED50TA PO ×2 (20:54→20:58)
[2023-10-19] MEDS ORDERED: DOXY100C2 PO ×2 (20:54→20:58)
== END 2023-10-19 21:37 | disposition left against medical advice (07) ==
LOC: ER 17:21 → UNDOADMIN 20:30 → MED 20:30 → ER 21:37
DX: J44.1 Chronic obstructive pulmonary disease with (acute) exacerbation (principal); J18.9 Pneumonia, unspecified organism; I10 Essential (primary) hypertension; Z90.89 Acquired absence of other organs; Z88.8 Allergy status to other drugs, medicaments and biological substances; Z20.822 Contact with and (suspected) exposure to COVID-19
CPT/HCPCS: 99285; 96365; 71045; 87426; 93005; 87804 ×2; 85025; 80048; 36415; 84484; 94640 ×2; J3490; J7512; J7060; A4223